=== PATIENT | female | born 1980 | race American Indian/Alaskan Native ===

== ENCOUNTER 2018-11-08 10:54 | Emergency (ER) | payer SELFPAY ==
[2018-11-08 11:36] VITALS: BP 115/58
--- NOTE | 2018-11-08 11:36 | Emergency Department Report ---
Blank Doc - Documentation Documentation: This is a 38-year-old female that presents with right sided chest pain with ra diation to right neck area. Denies any SOB. Denies any HX of cardiac. This initial assessment diagnostic orders/clinical plan/treatment(s) is/are subject to change based on patient's health status, clinical progression and re- assessment by fellow clinical providers in the ED. Further treatment and workup at subsequent clinical providers discretion. Patient/guardians urged not to elope from ED s their condition may be serious if not clinically assessed and managed. Initial orders include: 1-patient sent to [facility] for further evaluation and treatment. 2-labs 3- EKG 4- CXR
[2018-11-08 12:08] LABS: Basophils % (Auto) 0.4 % (0.0-1.8); Eosinophils # (Auto) 0.2 K/mm3 (0.0-0.4); Eosinophils % (Auto) 1.7 % (0.0-4.3); Hematocrit 36.6 % (30.3-42.9); Hemoglobin 12.2 gm/dl (10.1-14.3); Lymphocytes # (Auto) 2.6 K/mm3 (1.2-5.4); Lymphocytes % (Auto) 23.9 % (13.4-35.0); Mean Corpuscular HGB Conc 33 % (30-34); Mean Corpuscular Volume 96 fl (79-97); Monocytes # (Auto) 0.8 K/mm3 (0.0-0.8); Monocytes % (Auto) 7.9 % (0.0-7.3); Platelet Count 232 K/mm3 (140-440); Red Blood Count 3.83 M/mm3 (3.65-5.03); Red Cell Distribution Width 13.8 % (13.2-15.2)
[2018-11-08 12:25] LABS: Partial Thromboplastin Time 27.4 Sec. (24.2-36.6)
--- NOTE | 2018-11-08 12:29 | Emergency Department Report ---
ED Chest Pain HPI - General Chief Complaint: Chest Pain Stated Complaint: PAIN ON (R) BREAST/(R) ARM TINGLING Time Seen by Provider: 11/08/18 11:34 Source: patient Mode of arrival: Ambulatory Limitations: No Limitations - History of Present Illness Initial Comments: 38-year-old female with no past medical history presents to ED with right-sided intermittent chest pain 1 week. Patient states pain is sharp in nature, lasting only a few seconds at a time. Usually occurs at rest, denies any aggravating or alleviating factors. Reports mild shortness of breath, denies leg pain or swelling. Denies fever or cough. Patient denies tobacco use. MD Complaint: chest pain -: week(s) (1) Onset: during rest Pain Location: right chest Pain Radiation: RUE Severity: mild Severity scale (0 -10): 6 Quality: sharp Consistency: intermittent Improves With: nothing Worsens With: nothing re: dyspnea. denies: nausea, vomting, diaphoresis Other Symptoms: denies: cough, fever, leg swelling - Related Data Previous Rx's Medication Instructions Recorded Last Taken Type Methocarbamol [Robaxin-750] 750 mg PO Q6HR PRN #20 tablet 11/08/18 Unknown Rx Naproxen [Naprosyn] 500 mg PO BID #20 tablet 11/08/18 Unknown Rx Allergies Allergy/AdvReac Type Severity Reaction Status Date / Time No Known Allergies Allergy Unverified 11/08/18 11:06 Heart Score - HEART Score History: Slightly suspicious EKG: Normal Age: < 45 Risk factors: No known risk factors Troponin: < normal limit HEART Score: 0 ED Review of Systems ROS: Stated complaint: PAIN ON (R) BREAST/(R) ARM TINGLING Other details as noted in HPI Comment: All other systems reviewed and negative Constitutional: denies: fever Respiratory: shortness of breath. denies: cough Cardiovascular: chest pain Gastrointestinal: denies: nausea, vomiting Musculoskeletal: other (denies leg pain or swelling) ED Past Medical Hx - Past Medical History Previous Medical History?: No - Surgical History Past Surgical History?: No - Social History Smoking Status: Never Smoker - Medications Home Medications: Home Medications Medication Instructions Recorded Confirmed Last Taken Type Methocarbamol [Robaxin-750] 750 mg PO Q6HR PRN #20 tablet 11/08/18 Unknown Rx Naproxen [Naprosyn] 500 mg PO BID #20 tablet 11/08/18 Unknown Rx ED Physical Exam - General Limitations: No Limitations General appearance: alert, in no apparent distress - Head Head exam: Present: atraumatic, normocephalic - Eye Eye exam: Present: normal appearance - ENT ENT exam: Present: mucous membranes moist - Neck Neck exam: Present: normal inspection - Respiratory Respiratory exam: Present: normal lung sounds bilaterally, chest wall tenderness. Absent: respiratory distress - Cardiovascular Cardiovascular Exam: Present: regular rate, normal rhythm - GI/Abdominal GI/Abdominal exam: Present: soft. Absent: distended, tenderness - Extremities Exam Extremities exam: Present: normal inspection. Absent: pedal edema, calf tenderness - Neurological Exam Neurological exam: Present: alert, oriented X3 - Psychiatric Psychiatric exam: Present: normal affect, normal mood - Skin Skin exam: Present: warm, dry, intact, normal color ED Course Vital Signs 11/08/18 11:35 Temperature 97.9 F Pulse Rate 59 L Respiratory 18 Rate Blood Pressure 115/58 O2 Sat by Pulse 100 Oximetry ED Medical Decision Making - Lab Data Result diagrams: 11/08/18 11:58 11/08/18 11:58 - EKG Data -: EKG Interpreted by Me EKG shows normal: sinus rhythm, axis, intervals, QRS complexes, ST-T waves Rate: normal - EKG Data Interpretation: no acute changes - Radiology Data Radiology results: image reviewed interpreted by me: CXR: neg acute - Medical Decision Making - atypical chest pain, right-sided - reproducible chest wall tenderness on exam - EKG unremarkable, trop negative - d-dimer negative - CXR nomal - likely costochondritis, will give rx for naprosyn and robaxin - outpt f/u advised - return precautions given - Differential Diagnosis chest wall pain, PE, ACS Critical care attestation.: If time is entered above; I have spent that time in minutes in the direct care of this critically ill patient, excluding procedure time. ED Disposition Clinical Impression: Costochondritis Disposition: TO HOME OR SELFCARE Is pt being admited?: No Condition: Stable Instructions: Costochondritis (ED) Prescriptions: Naproxen [Naprosyn] 500 mg PO BID #20 tablet Methocarbamol [Robaxin-750] 750 mg PO Q6HR PRN #20 tablet PRN Reason: Spasms Referrals: [facility], MD [Primary Care Provider] - 3-5 Days Forms: Work/School Release Form(ED) Time of Disposition: 13:08
[2018-11-08 12:33] LABS: Alanine Aminotransferase 14 units/L (7-56); BUN/Creatinine Ratio 13; Blood Urea Nitrogen 8 mg/dL (7-17); Calcium 8.7 mg/dL (8.4-10.2); Hemolysis Index 21
[2018-11-08 12:50] LABS: INR 1.02 (0.87-1.13)
--- NOTE | 2018-11-08 14:20 | XRay Report ---
ROUTINE CHEST, TWO VIEWS: HISTORY: chest pain. The trachea, heart, mediastinal contour, lung arevalo and bony thorax are unremarkable. IMPRESSION: Unremarkable chest x-ray.
== END 2018-11-08 13:39 | disposition home or self-care (01) ==
LOC: ED 10:54
DX: M94.0 Chondrocostal junction syndrome [Tietze] (principal)
CPT/HCPCS: 36415; 71046; 80053; 84484; 84703; 85025; 85379; 85610; 85730; 93005; 93010; 99284

== ENCOUNTER 2019-01-24 12:27 | Emergency (ER) | payer SELFPAY ==
--- NOTE | 2019-01-24 12:43 | Emergency Department Report ---
Blank Doc - Documentation Documentation: This is a 38-year-old female that presents with vaginal discharge. Denies any vaginal bleeding. Stated is but is not sure how long. This initial assessment/diagnostic orders/clinical plan/treatment(s) is/are subject to change based on patient's health status, clinical progression and re- assessment by fellow clinical providers in the ED. Further treatment and workup at subsequent clinical providers discretion. Patient/guardians urged not to elope from the ED as their condition may be serious if not clinically assessed and managed. Initial orders include: 1- Patient sent to [facility] for further evaluation and treatment 2- UA 3- wet prep
--- NOTE | 2019-01-24 13:05 | Emergency Department Report ---
ED Female HPI - General Chief complaint: Vaginal Bleeding Stated complaint: POS PREG TEST/DISCHARGE/PAIN Time Seen by Provider: 01/24/19 12:42 Source: patient Mode of arrival: Ambulatory Limitations: No Limitations - History of Present Illness Initial comments: This is a 38-year-old female who presents to the emergency room with lower back pain and vaginal spotting upon awakening this morning. Patient states she took a home tests over the weekend which was positive. Last menstrual period 12/16/2018, A1 miscarriage. She denies pelvic pain, urinary frequency, urgency, dysuria. MD Complaint: vaginal bleeding -: This morning Severity: mild Severity scale (0 -10): 3 Quality: aching Consistency: intermittent Improves with: none Worsens with: urination Are you Now?: Yes Last Menstrual Period: 12/16/18 EDC: 09/22/19 Associated Symptoms: vaginal bleeding, hematuria. denies: vaginal discharge, abdominal pain, nausea/vomiting, fever/chills, headaches, loss of appetite, dysuria, rash, seizure, shortness of breath, syncope, weakness - Related Data Sexually active: Yes : 4 Para: 2 A: 1 (miscarriage) Previous Rx's Medication Instructions Recorded Last Taken Type Methocarbamol [Robaxin-750] 750 mg PO Q6HR PRN #20 tablet 11/08/18 Unknown Rx Naproxen [Naprosyn] 500 mg PO BID #20 tablet 11/08/18 Unknown Rx Miconazole 2% [Monistat 7 Vag 1 applicator VG QHS 7 Days #1 tube 01/24/19 Unknown Rx Cream] Nitrofurantoin [place]/M-Cryst 100 mg PO Q12HR #14 capsule 01/24/19 Unknown Rx [Macrobid CAP] metroNIDAZOLE [Flagyl TAB] 500 mg PO Q12HR #14 tab 01/24/19 Unknown Rx Allergies Allergy/AdvReac Type Severity Reaction Status Date / Time No Known Allergies Allergy Unverified 11/08/18 11:06 ED Review of Systems ROS: Stated complaint: POS PREG TEST/DISCHARGE/PAIN Other details as noted in HPI Constitutional: denies: chills, fever Respiratory: denies: cough, shortness of breath, wheezing Cardiovascular: denies: chest pain, palpitations Gastrointestinal: denies: abdominal pain, nausea, diarrhea Genitourinary: hematuria, other (vaginal bleeding and ). denies: urgency, dysuria, discharge Musculoskeletal: back pain. denies: joint swelling, arthralgia Skin: denies: rash, lesions Neurological: denies: headache, weakness, paresthesias Psychiatric: denies: anxiety, depression ED Past Medical Hx - Past Medical History Previous Medical History?: No - Surgical History Past Surgical History?: Yes Additional Surgical History: C section - Social History Smoking Status: Never Smoker Substance Use Type: Marijuana - Medications Home Medications: Home Medications Medication Instructions Recorded Confirmed Last Taken Type Methocarbamol [Robaxin-750] 750 mg PO Q6HR PRN #20 tablet 11/08/18 Unknown Rx Naproxen [Naprosyn] 500 mg PO BID #20 tablet 11/08/18 Unknown Rx Miconazole 2% [Monistat 7 Vag 1 applicator VG QHS 7 Days #1 tube 01/24/19 Unknown Rx Cream] Nitrofurantoin [place]/M-Cryst 100 mg PO Q12HR #14 capsule 01/24/19 Unknown Rx [Macrobid CAP] metroNIDAZOLE [Flagyl TAB] 500 mg PO Q12HR #14 tab 01/24/19 Unknown Rx ED Physical Exam - General Limitations: No Limitations General appearance: alert, in no apparent distress, obese - Respiratory Respiratory exam: Present: normal lung sounds bilaterally. Absent: respiratory distress - Cardiovascular Cardiovascular Exam: Present: regular rate, normal rhythm. Absent: systolic murmur, diastolic murmur, rubs, gallop - GI/Abdominal GI/Abdominal exam: Present: soft, normal bowel sounds. Absent: distended, tenderness, guarding, rebound, rigid, organomegaly, mass - External exam: Present: normal external exam. Absent: erythema, swelling, lesions, lacerations, ecchymosis, bleeding Speculum exam: Present: vaginal bleeding. Absent: erythema, vaginal discharge, cervical discharge, foreign body, tissue, laceration Bi-manual exam: Present: normal bi-manual exam - Back Exam Back exam: Absent: CVA tenderness (R), CVA tenderness (L) - Neurological Exam Neurological exam: Present: alert, oriented X3 - Psychiatric Psychiatric exam: Present: normal affect, normal mood - Skin Skin exam: Present: warm, dry, intact, normal color. Absent: rash ED Course Vital Signs 01/24/19 01/24/19 12:46 16:31 Temperature 98.1 F 97.7 F Pulse Rate 69 61 Respiratory 16 16 Rate Blood Pressure 117/52 123/75 O2 Sat by Pulse 100 100 Oximetry ED Medical Decision Making - Lab Data Result diagrams: 01/24/19 14:06 Lab Results 01/24/19 01/24/19 01/24/19 Range/Units 13:06 14:06 14:06 WBC 15.9 H (4.5-11.0) K/mm3 RBC 3.97 (3.65-5.03) M/mm3 Hgb 12.7 (10.1-14.3) gm/dl Hct 38.0 (30.3-42.9) % MCV 96 (79-97) fl MCH 32 (28-32) pg MCHC 33 (30-34) % RDW 13.9 (13.2-15.2) % Plt Count 240 (140-440) K/mm3 HCG, Quant 59620 H (0-4) mIU/mL Urine Color Yellow (Yellow) Urine Turbidity Slightly-cloudy (Clear) Urine pH 7.0 (5.0-7.0) Ur Specific [place] 1.010 (1.003-1.030) Urine Protein <15 mg/dl (Negative) mg/dL Urine Glucose (UA) Neg (Negative) mg/dL Urine Ketones Neg (Negative) mg/dL Urine Blood Lg (Negative) Urine Nitrite Neg (Negative) Urine Bilirubin Neg (Negative) Urine Urobilinogen < 2.0 (<2.0) mg/dL Ur Leukocyte Esterase Neg (Negative) Urine WBC (Auto) 1.0 (0.0-6.0) /HPF Urine RBC (Auto) 1.0 (0.0-6.0) /HPF U Epithel Cells (Auto) 14.0 H (0-13.0) /HPF Urine Bacteria (Auto) 1+ (Negative) /HPF Urine Mucus Few /HPF Urine HCG, Qual Positive A (Negative) - Radiology Data Radiology results: report reviewed PROCEDURE: US OB TRANSVAGINAL TECHNIQUE: Transvaginal pelvic ultrasound HISTORY: vaginal bleeding, COMPARISONS: No priors FINDINGS: There is a single viable intrauterine . The crown-rump length corresponds to a gestational age of 6 weeks and 5 days. The heart rate is 127 bpm. Subchorionic hemorrhage adjacent to the gestational sac measuring approximately 3 cm. The right ovary is normal in contour and echotexture. There is a complex cyst in the left ovary measuring 2.3 cm, likely corpus luteum cyst. No adnexal masses or fluid in the pelvic cul-de-sac. IMPRESSION: Single viable intrauterine at approximately 6 weeks and 5 days of gestation. Subchorionic hemorrhage adjacent to the gestational sac measuring approximately 3 cm. Complex cyst in the left ovary measuring 2.3 cm most consistent with corpus luteum cyst. No adnexal masses or fluid in the pelvic cul-de-sac.. - Medical Decision Making Patient was examined by me. Vitals are normal and patient is in no acute distress. Obtained a urinalysis, hCG, CBC, and OB ultrasound. There is elevate d WBCs and signs of a urinary tract infection. Patient will be treated for acute cystitis. Given Rocephin 500 mg IM while in ER. Wet prep and gonorrhea and chlamydia obtained revealed pelvic exam. Wet prep positive for yeast and clue cells, negative Trichomonas. An OB ultrasound was obtained and dictated by radiologist. Single viable intrauterine at approximately 6 weeks and 5 days of gestation. Subchorionic hemorrhage adjacent to the gestational sac measuring approximately 3 cm. Complex cyst in the left ovary measuring 2.3 cm most consistent with corpus luteum cyst. No adnexal masses or fluid in the pelvic cul-de-sac. Start metronidazole, miconazole gel, and Macrobid. Patient informed of results. Plan discussed with patient to discharge home and treat outpatient. Follow up with her [employer] [facility] Dr. Castaneda at [facility]. Patient discharged home in stable condition. Follow up with PCP in 2-3 days. Critical care attestation.: If time is entered above; I have spent that time in minutes in the direct care of this critically ill patient, excluding procedure time. ED Disposition Clinical Impression: Vaginal bleeding affecting early Subchorionic hemorrhage in first trimester Qualifiers: Fetus number: single or unspecified fetus Qualified Code(s): O41.8X10 - Other specified disorders of amniotic fluid and membranes, first trimester, not applicable or unspecified; O46.8X1 - Other antepartum hemorrhage, first trimester Acute cystitis during Qualifiers: Trimester: first trimester Qualified Code(s): O23.11 - Infections of bladder in , first trimester Disposition: DC- TO HOME OR SELFCARE Is pt being admited?: No Does the pt Need Aspirin: No Condition: Stable Instructions: Urinary Tract Infection in Women (ED) Additional Instructions: Increase fluid intake to 1L to 2L daily. Complete full course of antibiotics as prescribed. Avoid drinking alcohol while taking antibiotics and for 24 hours after completion. Follow-up with your [employer] within the next week. Prescriptions: Miconazole 2% [Monistat 7 Vag Cream] 1 applicator VG QHS 7 Days #1 tube metroNIDAZOLE [Flagyl TAB] 500 mg PO Q12HR #14 tab Nitrofurantoin [place]/M-Cryst [Macrobid CAP] 100 mg PO Q12HR #14 capsule Referrals: ISABEL SANTOS MD [Primary Care Provider] - 3-5 Days [facility] [Provider Group] - 3-5 Days HARRIETT CASTANEDA MD [Staff Physician] - 3-5 Days Forms: Work/School Release Form(ED) Time of Disposition: 18:12
[2019-01-24 13:26] LABS: Bacteria,Urine 1+ /HPF (Negative); Bilirubin,Urine NEG (Negative); Blood,Urine LG (Negative); Color,Urine Yellow (Yellow); Mucus,Urine FEW /HPF; Protein,Urine <15 mg/dL mg/dL (Negative); Urobilinogen,Urine < 2.0 mg/dL (<2.0)
[2019-01-24 13:37] LABS: HCG Qualitative,Urine Positive (Negative)
[2019-01-24 14:34] LABS: Hemoglobin 12.7 gm/dl (10.1-14.3); Mean Corpuscular HGB Conc 33 % (30-34); Mean Corpuscular Volume 96 fl (79-97); Platelet Count 240 K/mm3 (140-440); Red Blood Count 3.97 M/mm3 (3.65-5.03); Red Cell Distribution Width 13.9 % (13.2-15.2)
[2019-01-24 16:38] VITALS: BP 123/75
--- NOTE | 2019-01-24 17:41 | Ultrasound Report ---
PROCEDURE: US OB TRANSVAGINAL TECHNIQUE: Transvaginal pelvic ultrasound HISTORY: vaginal bleeding, COMPARISONS: No priors FINDINGS: There is a single viable intrauterine . The crown-rump length corresponds to a gestational age of 6 weeks and 5 days. The heart rate is 127 bpm. Subchorionic hemorrhage adjacent to the gestational sac measuring approximately 3 cm. The right ovary is normal in contour and echotexture. There is a complex cyst in the left ovary measuring 2.3 cm, likely corpus luteum cyst. No adnexal masses or fluid in the pelvic cul-de-sac. IMPRESSION: Single viable intrauterine at approximately 6 weeks and 5 days of gestation. Subchorionic hemorrhage adjacent to the gestational sac measuring approximately 3 cm. Complex cyst in the left ovary measuring 2.3 cm most consistent with corpus luteum cyst. No adnexal masses or fluid in the pelvic cul-de-sac.. This document is electronically signed by Vladimir Araujo MD., January 24 2019 06:38:55 PM ET
[2019-01-24] MEDS ORDERED: XYLOCAINE 1% MPF 5 mL INFILTRATI ONE (18:05)
[2019-01-24] MEDS ORDERED: ROCEPHIN IM ONE (18:05)
--- NOTE | 2019-01-24 22:34 | Ultrasound Report ---
PROCEDURE: US OB TRANSABDOMINAL AND TRANSVAGINAL TECHNIQUE: Transvaginal pelvic ultrasound HISTORY: vaginal bleeding, COMPARISONS: No priors FINDINGS: There is a single viable intrauterine . The crown-rump length corresponds to a gestational age of 6 weeks and 5 days. The heart rate is 127 bpm. Subchorionic hemorrhage adjacent to the gestational sac measuring approximately 3 cm. The right ovary is normal in contour and echotexture. There is a complex cyst in the left ovary measuring 2.3 cm, likely corpus luteum cyst. No adnexal masses or fluid in the pelvic cul-de-sac. IMPRESSION: Single viable intrauterine at approximately 6 weeks and 5 days of gestation. Subchorionic hemorrhage adjacent to the gestational sac measuring approximately 3 cm. Complex cyst in the left ovary measuring 2.3 cm most consistent with corpus luteum cyst. No adnexal masses or fluid in the pelvic cul-de-sac.. This document is electronically signed by Vladimir Araujo MD., January 24 2019 11:32:28 PM ET
== END 2019-01-24 18:34 | disposition home or self-care (01) ==
LOC: ED 12:27
DX: O41.8X10 Other specified disorders of amniotic fluid and membranes, first trimester, not applicable or unspecified (principal); O20.8 Other hemorrhage in early pregnancy; O23.10 Infections of bladder in pregnancy, unspecified trimester; O99.321 Drug use complicating pregnancy, first trimester; F12.90 Cannabis use, unspecified, uncomplicated; Z3A.01 Less than 8 weeks gestation of pregnancy
CPT/HCPCS: 36415; 76801; 76817; 81001; 81025; 84702; 85027; 87210; 87591; 96372; 99284; J0696

== ENCOUNTER 2019-04-10 11:04 | Emergency (ER) | payer SELFPAY ==
[2019-04-10] MEDS ORDERED: TYLENOL PO ONE (12:17)
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
[2019-04-10 12:40] LABS: Basophils % (Auto) 0.2 % (0.0-1.8); Eosinophils # (Auto) 0.1 K/mm3 (0.0-0.4); Eosinophils % (Auto) 0.5 % (0.0-4.3); Hematocrit 32.8 % (30.3-42.9); Hemoglobin 11.2 gm/dl (10.1-14.3); Lymphocytes # (Auto) 1.4 K/mm3 (1.2-5.4); Lymphocytes % (Auto) 9.4 % (13.4-35.0); Mean Corpuscular HGB Conc 34 % (30-34); Mean Corpuscular Volume 96 fl (79-97); Monocytes # (Auto) 0.9 K/mm3 (0.0-0.8); Monocytes % (Auto) 6.3 % (0.0-7.3); Platelet Count 292 K/mm3 (140-440); Red Blood Count 3.42 M/mm3 (3.65-5.03)
--- NOTE | 2019-04-10 13:32 | Ultrasound Report ---
US OB >= 14 weeks Fetus INDICATION / CLINICAL INFORMATION: abd cramps after fall, 16wks 3d by dates preg. COMPARISON: None available. FINDINGS: Single, viable intrauterine , cephalic presentation. heart rate 141. Placenta is fundal and free of the cervical os. Amniotic fluid volume is subjectively normal. Biparietal diameter 4 cm, 18 weeks 1 day. Head circumference 14.3 cm, 17 weeks 4 days. Abdominal circumference 12.4 cm, 18 weeks 0 days. Femur length 2.6 cm, 17 weeks 6 days. IMPRESSION: 1. Single, viable intrauterine , with ultrasound estimated gestational age of 17 weeks 6 day s. Signer Name: Luis Paul MD Signed: 04/10/2019 1:28 PM Workstation Name: [id number]
--- NOTE | 2019-04-10 13:33 | XRay Report ---
RIGHT ANKLE 3 VIEWS INDICATION / CLINICAL INFORMATION: rigth ankle pain,swelling, fall. COMPARISON: None available. FINDINGS: Old healed distal tibial fracture. Mild soft tissue swelling over the lateral malleolus, but no acute fracture. Tibiotalar joint is normally aligned. Signer Name: Luis Paul MD Signed: 04/10/2019 1:29 PM Workstation Name: [id number]
[2019-04-10 16:01] VITALS: BP 121/86
== END 2019-04-10 14:45 | disposition home or self-care (01) ==
LOC: ED 11:04
DX: O26.892 Other specified pregnancy related conditions, second trimester (principal); S93.401A Sprain of unspecified ligament of right ankle, initial encounter; S30.1XXA Contusion of abdominal wall, initial encounter; Z3A.17 17 weeks gestation of pregnancy; W19.XXXA Unspecified fall, initial encounter; Y93.89 Activity, other specified; Y92.89 Other specified places as the place of occurrence of the external cause; Y99.8 Other external cause status
CPT/HCPCS: 36415; 76805; 84702; 85025; 86850; 86900; 86901

== ENCOUNTER 2019-05-22 17:00 | Outpatient (CLI) | payer OTHER ==
[2019-05-22 17:18] VITALS: BP 111/63
[2019-05-22] MEDS ORDERED: LACTATED RINGERS 500 ML IV ONE (17:48)
== END 2019-05-22 17:51 | disposition home or self-care (01) ==
LOC: TRG 17:00
PROVIDERS: ATTEND Obstetrics & Gynecology
DX: O47.02 False labor before 37 completed weeks of gestation, second trimester (principal); Z3A.24 24 weeks gestation of pregnancy
CPT/HCPCS: 59025